=== PATIENT | female | born 1955 | race Caucasian/White ===

== ENCOUNTER → 2017-02-19 | Outpatient (CLI) | payer BC ==
[~2017-02-19] MED LIST: NO HOME MEDICATIONS
== END ==
LOC: COL.VAS 08:52
DX: I70.8 Atherosclerosis of other arteries (principal); R01.1 Cardiac murmur, unspecified; Z82.3 Family history of stroke

== ENCOUNTER → 2017-03-01 | Outpatient (CLI) | payer BC | LOC: COL.RAD 11:04 | DX: R01.1 Cardiac murmur, unspecified (principal) | CPT/HCPCS: Q9967 ==